=== PATIENT | male | born 1980 | race Caucasian/White ===

== ENCOUNTER 2016-07-11 13:19 | Emergency (ER) | payer OTHER ==
[2016-07-11 13:28] VITALS: BMI 25.3
--- NOTE | 2016-07-11 13:39 | PDOC ---
History of Present Illness - General Chief Complaint: Respiratory Stated Complaint: SOB, ASTHMA Time Seen by Provider: 07/11/16 13:38 History Source: Patient Exam Limitations: No Limitations - History of Present Illness Initial Comments: 07/11/16 13:39 CHIEF COMPLAINT: Shortness of breath HISTORY OF PRESENT ILLNESS: This is a 36 year old male with a history of mild intermittent asthma (uses albuterol MDI occasionally, never admitted) who presents complaining of four weeks of cough and dyspnea. He had an outpatient CXR which he thinks "might have shown a trace of pneumonia." He was treated with Advair, Medrol dose pack (which he has completed), and azithromycin without improvement. He had an outpatient CT scan (not at this facility) on , and does not yet know the results. He did travel to [facility] 1.5 wks ago, but notes that symptoms were present before that. He denies fevers/chills, hemoptysis, calf pain or swelling, recent trauma/surgery, and cigarette smoking. Vital signs on arrival are notable for P 107. Peak flow is 300 with good effort. REVIEW OF SYSTEMS: GENERAL/CONSTITUTIONAL: No fever or chills. No weakness. No weight change. HEAD, EYES, EARS, NOSE AND THROAT: No change in vision. No ear pain or discharge. No sore throat. CARDIOVASCULAR: No chest pain or palpitations. RESPIRATORY: See HPI. GASTROINTESTINAL: No nausea, vomiting, diarrhea or constipation. GENITOURINARY: No dysuria, frequency, or change in urination. MUSCULOSKELETAL: No joint or muscle swelling or pain. No neck or back pain. SKIN: No rash or easy bruising. NEUROLOGIC: No headache, vertigo, loss of consciousness, or loss of sensation. PSYCHIATRIC: No depression or anxiety. ENDOCRINE: No increased thirst. No abnormal weight change. HEMATOLOGIC/LYMPHATIC: No anemia, easy bleeding, or history of blood clots. ALLERGIC/IMMUNOLOGIC: No hives or skin allergy. No latex allergy. PHYSICAL EXAM: GENERAL: The patient is awake, alert, and fully oriented, in no acute distress. HEAD: Normal with no signs of trauma. ENT: Pupils equal, round and reactive to light, extraocular movements intact, sclera anicteric, conjunctiva clear. Neck supple. LUNGS: Tachypnea. Scant expiratory wheezes. No stridor or use of accessory muscles. CV: RRR, S1/S2, no MRG. Cap refill < 2 sec. ABDOMEN: Soft, non-distended, non-tender. EXTREMITIES: Normal range of motion, no edema. NEUROLOGICAL: Normal speech, normal gait. CN II-XII grossly intact. PSYCH: Normal mood, normal affect. SKIN: Warm, dry, normal turgor, no rashes or lesions noted. Past History - Past Medical History Allergies/Adverse Reactions: Allergies Allergy/AdvReac Type Severity Reaction Status Date / Time No Known Allergies Allergy Verified 07/11/16 13:20 Home Medications: Ambulatory Orders Albuterol Sulfate Inhaler - [Ventolin HFA Inhaler -] 1 - 2 inh PO QID PRN #1 inhaler 07/11/16 Fluticasone/Salmeterol [Advair Hfa 115-21 Mcg Inhaler] 1 inh PO BID 07/11/16 Levofloxacin [Levaquin] 750 mg PO DAILY #7 tablet 07/11/16 Prednisone [Deltasone] 40 mg PO DAILY #10 tablet 07/11/16 Promethazine/Phenyleph/Codeine [Phenergan VC+Codeine Syrup] 5 ml PO QID PRN # 120 ml MDD 20 mls 07/11/16 Asthma: Yes - Psycho/Social/Smoking Cessation Hx Anxiety: No Suicidal Ideation: No Smoking Status: No Smoking History: Never smoked Have you smoked in the past 12 months: No Number of Cigarettes Smoked Daily: 0 Hx Alcohol Use: Yes Drug/Substance Use Hx: No Substance Use Type: Alcohol Hx Substance Use Treatment: No *Physical Exam - Vital Signs Last Vital Signs Temp Pulse Resp BP Pulse Ox 98.0 F 107 H 22 135/67 97 07/11/16 13:20 07/11/16 13:20 07/11/16 13:20 07/11/16 13:20 07/11/16 13:20 ED Treatment Course - LABORATORY CBC & Chemistry Diagram: 07/11/16 14:26 07/11/16 14:26 Medical Decision Making - Medical Decision Making 07/11/16 14:01 A/P: 36 year old male with ?PNA, asthma exacerbation failing outpatient therapy. 1. DuoNeb and Solu-Medrol 125mg IVP 2. Repeat CXR here 3. Will obtain EKG and send d-dimer given that this presentation is unusual for the patient, who usually has very mild asthma 07/11/16 14:36 CXR: No acute pathology. 07/11/16 17:25 EKG shows RBBB. Symptoms out of proportion to this patient's typical asthma. Will obtain CTA chest to rule out PE, despite negative d-dimer. 07/11/16 18:[address] forwarded by Imaging service liaison representative: There is a patchy airspace infiltrate noted in the left lower lobe. Additional patchy airspace atelectasis and/or infiltrate is noted in the right lower lobe. Small groupings of reticulonodular opacities noted in the posterior segment of the right upper lobe and superior segment of the right lower lobe of undetermined significance. Patient re-evaluated and breathing is even and unlabored without wheezing. He was offered observation, but feels well enough to go home. Patient informed of findings and need for followup. Will make pulmonology referral. Will treat with Levaquin, prednisone, albuterol MDI, and Phenergan VC syrup. Followup instructions and return precautions reviewed. *DC/Admit/Observation/Transfer Diagnosis at time of Disposition: Community acquired pneumonia - Discharge Dispostion Disposition: HOME Condition at time of disposition: Stable Admit: No - Referrals Referrals: Cayden Fu MD [Staff Physician] - 1 week ([employer]) Camilo Hanna MD [Primary Care Provider] - 2 Days - Patient Instructions Printed Discharge Instructions: DI for Pneumonia -- Adult Additional Instructions: You were seen today for persistent cough and shortness of breath and diagnosed with pneumonia. You will need to follow up with a supply chain associate about your CT scan findings- referral enclosed. Take Levaquin (an antibiotic), prednisone (a steroid), and Phenergan VC (a cough syrup) as prescribed. Use the albuterol inhaler as prescribed for shortness of breath. Return here for worsening shortness of breath or any other concerning symptoms. Follow up with Dr. Hanna and the supply chain associate next week. - Post Discharge Activity Work/School Note: Back to Work
[2016-07-11] MEDS ORDERED: ALBUTEROL SO4 2.5/IPRATROPIUM 0.5 INH SOL 3 ML VIAL.NEB. NEB ONE ×4 (13:49→15:32)
[2016-07-11] MEDS ORDERED: methylPREDNISolone NA SUCC 125 MG/2 ML VIAL IVPB ONE (13:49)
[2016-07-11] MEDS ORDERED: methylPREDNISolone NA SUCC 125 MG/2 ML VIAL ONE (13:55)
[2016-07-11 14:22] LABS: BASOPHIL 0.4 % (0-2.0); EOSINOPHIL 2.1 % (0-4.5); MCHC 33.3 g/dl (32.0-35.9); MEAN CELL VOLUME 84.1 fl (80-96); MEAN PLT VOLUME 9.8 fl (7.5-11.1); NEUTROPHILS 62.5 % (42.8-82.8); PLATELET COUNT 205 K/MM3 (134-434); RDW 13.4 % (11.9-15.9); WHITE BLOOD COUNT 7.4 K/mm3 (4.0-10.0)
[2016-07-11 14:35] LABS: INR 1.12 (0.82-1.09)
[2016-07-11 14:44] LABS: ALBUMIN 3.9 g/dl (3.4-5.0); ANION GAP 13 (8-16); BILIRUBIN,TOTAL 0.8 mg/dL (0.2-1.0); CALCIUM 9.3 mg/dL (8.5-10.1); CO2 27 mmol/L (21-32); COCKROFT - GAULT 105.8; CREATININE 1.2 mg/dL (0.7-1.3); GLUCOSE,RANDOM 76 mg/dL (74-106); SGPT/ALT 25 U/L (12-78)
[2016-07-11 14:45] LABS: ALK PHOS 83 U/L (45-117)
[2016-07-11 14:48] LABS: SGOT/AST 24 U/L (15-37)
[2016-07-11 15:17] LABS: D-DIMER < 200 ng/ml (<200-235)
[2016-07-11] MEDS: ALBUTEROL SO4 2.5/IPRATROPIUM 0.5 INH SOL 3 ML VIAL.NEB. NEB SCH ×3 (15:33→16:03)
[2016-07-11 18:01] VITALS: BP 130/67; PULSE 78; TEMP 98.5
[2016-07-11] MEDS ORDERED: LEVOFLOXACIN 250 MG TABLET (FP) PO ONE (18:59)
[2016-07-11] MEDS ORDERED: LEVOFLOXACIN 500 MG TABLET (FP) ONE (19:00)
[2016-07-11] MEDS ORDERED: LEVOFLOXACIN 250 MG TABLET (FP) ONE (19:01)
--- NOTE | 2016-07-13 10:46 | EKG ---
Test Reason : Blood Pressure : / mmHG Vent. Rate : 083 BPM Atrial Rate : 083 BPM P-R Int : 166 ms QRS Dur : 134 ms QT Int : 368 ms P-R-T Axes : 062 002 016 degrees QTc Int : 432 ms NORMAL SINUS RHYTHM RIGHT BUNDLE BRANCH BLOCK ABNORMAL ECG NO PREVIOUS ECGS AVAILABLE Confirmed by POOJA ARNOLD MD ([id number]) on 07/13/2016 10:45:31 AM Referred By: Confirmed By:POOJA ARNOLD MD
== END 2016-07-11 19:06 | disposition home or self-care (01) ==
LOC: SUPCPDRO 13:19 → JER 13:19
PROC: 3E0F7GC Introduction of Other Therapeutic Substance into Respiratory Tract, Via Natural or Artificial Opening (ICD-10-PCS; principal; 2016-07-11)
PROC: 3E0333Z Introduction of Anti-inflammatory into Peripheral Vein, Percutaneous Approach (ICD-10-PCS; 2016-07-11)
DX: J18.9 Pneumonia, unspecified organism (principal); J45.909 Unspecified asthma, uncomplicated
CPT/HCPCS: 36415; 71020-TC; 71275-TC; 80053; 85025; 85379; 85610; 93005; 93010; 99284-25